=== PATIENT | male | born 1995 | race Caucasian/White ===

== ENCOUNTER 2017-01-13 05:29 | Inpatient (IN) | payer OTHER ==
[~2017-01-13] VITALS: Ht 175.3 cm; Wt 57.7 kg
[~2017-01-13 05:29] MED LIST: ELVI1TAB3 PO; FentaNYL CITRATE-PF 100 MCG/2 ML VIAL IVP ONE; FentaNYL CITRATE-PF 250 MCG/5 ML VIAL IVP ONE; KETAMINE HCL 50 MG/ML 10 ML VIAL IVP ONE; LIDOCAINE HCL/PF 2% 5 ML SYRINGE IVP ONE; MIDAZOLAM HCL 2 MG/2 ML VIAL IVP ONE; ONDANSETRON HCL 4 MG/2 ML VIAL IVP ONE; PROPOFOL 1% 20 ML VIAL IVP ONE; ROCURONIUM BROMIDE 10 MG/ML 5 ML VIAL IVP ONE; SERT50TA12 PO; SUCCINYLCHOLINE CHLORIDE 20 MG/ML 10 ML VIAL IVP ONE; [UNRECOGNIZED DRUG - CODE] PO
[2017-01-13] MEDS ORDERED: CeFAZolin 2 GM/DEXTROSE 50 ML IV ONE ×3 (05:56→06:30)
[2017-01-13] MEDS ORDERED: RINGERS SOLUTION,LACTATED 1,000 ML IV ONE ×4 (05:57→09:27)
[2017-01-13 06:38] LABS: BASOPHILS % (AUTO) 0.4 % (0.0-2.0); EOSINOPHILS % (AUTO) 0.8 % (1.0-6.0); HEMOGLOBIN 13.9 g/dL (13.5-17.5); LYMPHOCYTES # (AUTO) 2.5 K/uL (1.0-4.8); LYMPHOCYTES % (AUTO) 25.5 % (22.0-44.0); MEAN CORPUSCULAR HEMOGLOBIN 31.6 pg (26.0-34.0); MEAN CORPUSCULAR HGB CONC 32.3 G/dL (31.0-37.0); MEAN CORPUSCULAR VOLUME 98 fL (80-100); MONOCYTES # (AUTO) 0.8 K/uL (0.1-1.0); MONOCYTES % (AUTO) 7.9 % (2.0-9.0); NEUTROPHILS # (AUTO) 6.5 K/uL (1.8-7.7); NEUTROPHILS % (AUTO) 65.4 % (40.0-70.0); PLATELET COUNT (AUTO) 300 K/uL (150-450); RED CELL DISTRIBUTION WIDTH 13.1 % (11.5-14.5); WHITE BLOOD COUNT (AUTO) 9.9 K/uL (4.5-11.0)
[2017-01-13] MEDS ORDERED: PROPOFOL 1000 MG/ISO-OSM 100 ML IV ONE ×2 (06:43→10:17)
[2017-01-13] MEDS ORDERED: ACETAMINOPHEN 1000 MG/ISO-OSM 100 ML IV ONE (06:43)
[2017-01-13] MEDS ORDERED: SODIUM CHLORIDE 0.9% 10 ML ONE (06:46)
[2017-01-13] MEDS ORDERED: SODIUM CHLORIDE 0.9% 250 ML IV ONE (06:48)
[2017-01-13 06:51] LABS: PROTHROMBIN TIME 10.1 SEC (9.4-11.6)
[2017-01-13 06:58] LABS: ANION GAP 10 mmol/L (8-16); CALCIUM, TOTAL 9.1 mg/dL (8.8-10.5); CARBON DIOXIDE 26 mmol/L (22-29); CHLORIDE 98 mmol/L (98-107); CREATININE 0.91 mg/dL (0.60-1.30); GLOMERULAR FILTR. RATE CALC > 60 mL/min (>60); POTASSIUM 3.7 mmol/L (3.5-5.1); SODIUM SERUM 134 mmol/L (136-145); UREA NITROGEN, BLOOD 16 mg/dL (7-18)
[2017-01-13] MEDS ORDERED: SODIUM CHLORIDE 0.9% 1,000 ML IV ONE (07:02)
[2017-01-13] MEDS: GELATIN SPONGE,ABSORBABLE 100 MM TP ONE ×2 (08:37→10:14)
[2017-01-13] MEDS: THROMBIN, BOVINE 20000 UNITS/VIAL POWDER TP ONE ×2 (08:37→10:15)
[2017-01-13] MEDS: BACITRACIN 50,000 UNITS/VIAL ONE ×2 (08:37→10:13)
[2017-01-13] MEDS: BUPIVACAINE HCL/PF 0.5% 30 ML VIAL ONE ×2 (10:14→10:50)
[2017-01-13] MEDS: BUPIVACAINE LIPOSOME/PF 1.3%-13.3MG/ML SUSPENSION 20 ML VIAL INJ ONE ×2 (10:15→10:50)
[2017-01-13] MEDS ORDERED: FentaNYL CITRATE-PF 100 MCG/2 ML VIAL IVP PRN (10:45)
[2017-01-13] MEDS ORDERED: ONDANSETRON HCL 4 MG/2 ML VIAL IVP PRN ×2 (10:45→11:00)
[2017-01-13] MEDS ORDERED: MEPERIDINE-PF 25 MG/ML SYRINGE IVP PRN (10:45)
[2017-01-13] MEDS ORDERED: HYDROmorphone 2 MG/ML SYRINGE IVP PRN (10:45)
[2017-01-13] MEDS ORDERED: MAG HYDROX/AL HYDROX/SIMETH 30 ML SUSP UDCUP PO PRN (11:00)
[2017-01-13] MEDS ORDERED: ACETAMINOPHEN 325 MG TABLET PO PRN (11:00)
[2017-01-13 12:44] VITALS: BP 135/73
[2017-01-13] MEDS: HYDROmorphone 2 MG/ML SYRINGE IVP PRN ×3 (12:53→23:09)
[2017-01-13] MEDS: ACETAMINOPHEN 1000 MG/ISO-OSM 100 ML IV SCH ×2 (14:19→20:03)
[2017-01-13] MEDS: RINGERS SOLUTION,LACTATED 1,000 ML IV SCH (14:23)
[2017-01-13 16:00] VITALS: BP 111/60
[2017-01-13] MEDS: CeFAZolin 1 GM/DEXTROSE 50 ML IV SCH (16:28)
[2017-01-13 19:30] VITALS: BP 106/64
[2017-01-13] MEDS ORDERED: OXYGEN THERAPY IH SCH (20:00)
[2017-01-13] MEDS: OXYGEN THERAPY IH SCH (20:00)
[2017-01-13] MEDS: CELECOXIB 200 MG CAPSULE PO SCH (20:02)
[2017-01-13] MEDS: CYCLOBENZAPRINE HCL 10 MG TABLET PO SCH (20:02)
[2017-01-13] MEDS ORDERED: CELECOXIB 200 MG CAPSULE PO SCH (21:00)
[2017-01-13] MEDS: ZOLPIDEM TARTRATE 5 MG TABLET PO PRN (23:09)
[2017-01-14] VITALS (7 sets, daily range): BP systolic 102–130; BP diastolic 53–77
[2017-01-14] MEDS: RINGERS SOLUTION,LACTATED 1,000 ML IV SCH ×2 (00:20→13:40)
[2017-01-14] MEDS: CeFAZolin 1 GM/DEXTROSE 50 ML IV SCH (00:27)
[2017-01-14] MEDS: ACETAMINOPHEN 1000 MG/ISO-OSM 100 ML IV SCH ×2 (01:20→06:44)
[2017-01-14 06:45] LABS: BASOPHILS % (AUTO) 0.1 % (0.0-2.0); EOSINOPHILS % (AUTO) 0.2 % (1.0-6.0); HEMATOCRIT 36.6 % (41-53); HEMOGLOBIN 11.8 g/dL (13.5-17.5); LYMPHOCYTES # (AUTO) 0.8 K/uL (1.0-4.8); LYMPHOCYTES % (AUTO) 3.7 % (22.0-44.0); MEAN CORPUSCULAR HEMOGLOBIN 32.1 pg (26.0-34.0); MEAN CORPUSCULAR HGB CONC 32.3 G/dL (31.0-37.0); MEAN CORPUSCULAR VOLUME 99 fL (80-100); MONOCYTES # (AUTO) 0.8 K/uL (0.1-1.0); MONOCYTES % (AUTO) 3.9 % (2.0-9.0); NEUTROPHILS # (AUTO) 19.2 K/uL (1.8-7.7); PLATELET COUNT (AUTO) 239 K/uL (150-450); RED BLOOD CELL COUNT(AUTO) 3.68 MIL/uL (4.50-5.90); RED CELL DISTRIBUTION WIDTH 12.8 % (11.5-14.5); WHITE BLOOD COUNT (AUTO) 20.9 K/uL (4.5-11.0)
[2017-01-14 07:00] LABS: ANION GAP 8 mmol/L (8-16); CALCIUM, TOTAL 8.6 mg/dL (8.8-10.5); CARBON DIOXIDE 26 mmol/L (22-29); CHLORIDE 100 mmol/L (98-107); CREATININE 0.88 mg/dL (0.60-1.30); GLOMERULAR FILTR. RATE CALC > 60 mL/min (>60); POTASSIUM 4.1 mmol/L (3.5-5.1); SODIUM SERUM 134 mmol/L (136-145); UREA NITROGEN, BLOOD 10 mg/dL (7-18)
[2017-01-14 07:24] LABS: NEUTROPHILS % (AUTO) 92.1 % (40.0-70.0)
[2017-01-14] MEDS: OXYGEN THERAPY IH SCH ×2 (08:00→20:00)
[2017-01-14] MEDS: DOCUSATE SODIUM 100 MG CAPSULE PO SCH ×2 (08:12→20:20)
[2017-01-14] MEDS: CELECOXIB 200 MG CAPSULE PO SCH ×2 (08:12→20:20)
[2017-01-14] MEDS: CYCLOBENZAPRINE HCL 10 MG TABLET PO SCH ×2 (08:12→20:20)
[2017-01-14] MEDS: SERTRALINE HCL 50 MG TABLET PO SCH (08:12)
[2017-01-14] MEDS: HYDROmorphone 2 MG/ML SYRINGE IVP PRN (08:13)
[2017-01-14] MEDS ORDERED: [UNRECOGNIZED DRUG - OTHER] PO SCH (09:00)
[2017-01-14] MEDS ORDERED: [UNRECOGNIZED DRUG - OTHER] PO SCH (09:00)
[2017-01-14] MEDS ORDERED: OxyCODONE HCL/ACETAMINOPHEN 5-325 MG TABLET PO PRN ×2 (12:00)
[2017-01-14] MEDS: OxyCODONE HCL/ACETAMINOPHEN 5-325 MG TABLET PO PRN ×2 (17:51→23:24)
[2017-01-14] MEDS: ZOLPIDEM TARTRATE 5 MG TABLET PO PRN (23:25)
[2017-01-15] MEDS: RINGERS SOLUTION,LACTATED 1,000 ML IV SCH (03:00)
[2017-01-15 04:07] VITALS: BP 117/66
[2017-01-15] MEDS: OxyCODONE HCL/ACETAMINOPHEN 5-325 MG TABLET PO PRN (04:12)
[2017-01-15 08:00] VITALS: BP 117/74
[2017-01-15] MEDS: CYCLOBENZAPRINE HCL 10 MG TABLET PO SCH (08:46)
[2017-01-15] MEDS: DOCUSATE SODIUM 100 MG CAPSULE PO SCH (08:46)
[2017-01-15] MEDS: SERTRALINE HCL 50 MG TABLET PO SCH (08:46)
[2017-01-15] MEDS: CELECOXIB 200 MG CAPSULE PO SCH (08:46)
[2017-01-15 11:35] LABS: BASOPHILS % (AUTO) 0.1 % (0.0-2.0); EOSINOPHILS % (AUTO) 0.2 % (1.0-6.0); HEMATOCRIT 36.4 % (41-53); HEMOGLOBIN 11.6 g/dL (13.5-17.5); LYMPHOCYTES # (AUTO) 1.5 K/uL (1.0-4.8); LYMPHOCYTES % (AUTO) 9.4 % (22.0-44.0); MEAN CORPUSCULAR HEMOGLOBIN 31.6 pg (26.0-34.0); MEAN CORPUSCULAR HGB CONC 31.8 G/dL (31.0-37.0); MEAN CORPUSCULAR VOLUME 99 fL (80-100); MONOCYTES # (AUTO) 1.3 K/uL (0.1-1.0); MONOCYTES % (AUTO) 8.2 % (2.0-9.0); NEUTROPHILS # (AUTO) 13.3 K/uL (1.8-7.7); NEUTROPHILS % (AUTO) 82.1 % (40.0-70.0); PLATELET COUNT (AUTO) 230 K/uL (150-450); RED BLOOD CELL COUNT(AUTO) 3.67 MIL/uL (4.50-5.90); RED CELL DISTRIBUTION WIDTH 13.2 % (11.5-14.5); WHITE BLOOD COUNT (AUTO) 16.2 K/uL (4.5-11.0)
[2017-01-15 12:00] VITALS: BP 111/63
[2017-01-15 16:27] VITALS: BP 123/75
[2017-01-15] MEDS ORDERED: PERCT10 PO (17:24)
[2017-01-15] MEDS ORDERED: CYCL10B PO (17:26)
== END 2017-01-15 18:00 | disposition home or self-care (01) | DRG 460 ==
LOC: 4E 05:29
PROVIDERS: ADMIT Neurological Surgery; ATTEND Neurological Surgery
PROC: 0SB40ZZ Excision of Lumbosacral Disc, Open Approach (ICD-10-PCS; 2017-01-13)
PROC: 0SG30Z1 (ICD-10-PCS; 2017-01-13)
PROC: 0SG30AJ Fusion of Lumbosacral Joint with Interbody Fusion Device, Posterior Approach, Anterior Column, Open Approach (ICD-10-PCS; principal; 2017-01-13 08:37)
DX: M53.2X7 Spinal instabilities, lumbosacral region (principal); E87.1 Hypo-osmolality and hyponatremia; D72.829 Elevated white blood cell count, unspecified; S39.82XA Other specified injuries of lower back, initial encounter; X58.XXXA Exposure to other specified factors, initial encounter; Y93.89 Activity, other specified; Y92.89 Other specified places as the place of occurrence of the external cause; Y99.8 Other external cause status
CPT/HCPCS: 86850; 86900; 86901; 86920; 87081; 97161; 97165; C1713; C9290; G0238; J0131; J0330; J0690; J1030; J1170; J2250; J2405; J2704; J3010; J3490; J7030; J7050; J7120